=== PATIENT | female | born 1965 | race Caucasian/White ===

== ENCOUNTER 2017-06-07 13:58 | Emergency (ER) | payer BC, OTHER ==
[~2017-06-07] VITALS: Ht 170.2 cm; Wt 96.0 kg
[2017-06-07 14:18] VITALS: BP 176/76; PULSE 66; RESP 16; TEMP 98.4; O2SAT 98
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
[2017-06-07] MEDS ORDERED: LIDOCAINE HCL 1% 50 ML VIAL INFIL ONE (14:30)
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
[2017-06-07 15:57] LABS: BASOPHIL % 0.1 % (0.0-2.0); EOSINOPHIL # 0.1 TH/MM3 (0-0.4); EOSINOPHIL % 0.4 % (0.0-4.0); HEMATOCRIT 35.4 % (35.0-46.0); HEMO FLAGS DIFF FINAL; LYMPH % 8.1 % (9.0-44.0); LYMPHOCYTE # 1.3 TH/MM3 (1.0-4.8); MEAN CELL VOLUME 79.5 FL (80.0-100.0); MEAN CORPUSCULAR HEMOGLOBIN 24.7 PG (27.0-34.0); MEAN CORPUSCULAR HGB CONC 31.1 % (32.0-36.0); MONO % 7.6 % (0.0-8.0); NEUT % 83.8 % (16.0-70.0); PLATELET COUNT 318 TH/MM3 (150-450); RED BLOOD COUNT 4.45 MIL/MM3 (4.00-5.30); WHITE BLOOD COUNT 16.7 TH/MM3 (4.0-11.0)
[2017-06-07 16:11] LABS: APTT (PATIENT) 21.3 SEC (24.3-30.1); PROTHROMBIN TIME - PATIENT 11.1 SEC (9.8-11.6)
[2017-06-07 16:14] LABS: ANION GAP 8 MEQ/L (5-15); AST (GOT) 27 U/L (15-37); BICARBONATE 22.7 MEQ/L (21.0-32.0); BLOOD UREA NITROGEN 11 MG/DL (7-18); CHLORIDE 111 MEQ/L (98-107); GLOMERULAR FILTRATION RATE 85 ML/MIN (>89); POTASSIUM 4.3 MEQ/L (3.5-5.1); SODIUM (NA) 142 MEQ/L (136-145)
[2017-06-07 16:22] LABS: ALKALINE PHOSPHATASE 78 U/L (45-117); ALT (GPT) 29 U/L (10-53); TOTAL BILIRUBIN ADULT 0.5 MG/DL (0.2-1.0)
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
[2017-06-07] MEDS ORDERED: HYDROCHLOROQUIN PO (16:58)
[2017-06-07] MEDS ORDERED: ACYC400T PO (16:58)
[2017-06-07] MEDS ORDERED: TRAM50TA PO (16:58)
[2017-06-07] MEDS ORDERED: CEPH-460 PO (17:00)
[2017-06-07] MEDS ORDERED: KETOROLAC TROMETHAMINE 60 MG/2 ML (IM) VIAL IM ONE (17:00)
[2017-06-07] MEDS ORDERED: DIFL150T PO (17:14)
== END 2017-06-07 17:23 | disposition home or self-care (01) ==
LOC: NEPD 13:58
DX: S01.81XA Laceration without foreign body of other part of head, initial encounter (principal); S61.212A Laceration without foreign body of right middle finger without damage to nail, initial encounter; S61.214A Laceration without foreign body of right ring finger without damage to nail, initial encounter; S01.21XA Laceration without foreign body of nose, initial encounter; S00.81XA Abrasion of other part of head, initial encounter; S60.511A Abrasion of right hand, initial encounter; S50.311A Abrasion of right elbow, initial encounter; S50.811A Abrasion of right forearm, initial encounter; S80.811A Abrasion, right lower leg, initial encounter; S09.90XA Unspecified injury of head, initial encounter; V29.88XA Motorcycle rider (driver) (passenger) injured in other specified transport accidents, initial encounter
CPT/HCPCS: 12001; 12013; 70450; 70486; 71010; 72125; 73030; 73090; 73130; 73564; 80053; 84703; 85025; 85610; 85730; 96374; 99285; J1885